=== PATIENT | male | born 1990 | race Two or more races ===

== ENCOUNTER 2020-06-15 14:53 | Outpatient (REF) | payer SELFPAY | END 2020-06-15 14:54 | disposition home or self-care (01) | LOC: HO.LAB 14:53 | PROVIDERS: Visit Provider Internal Medicine | DX: Z20.828 Contact with and (suspected) exposure to other viral communicable diseases (principal) | CPT/HCPCS: C9803; U0003 ==

== ENCOUNTER 2024-06-18 18:39 | Emergency (ER) | payer MEDICAID, SELFPAY ==
[2024-06-18 19:02] VITALS: BP 140/91; PULSE 93; RESP 20; TEMP 37; O2SAT 99; BMI 25.1
--- NOTE | 2024-06-18 19:05 | ED.GENADULT ---
HPI - General Adult General Chief complaint: Eye Problems Stated complaint: ? R Eye Infection Time Seen by Provider: 06/18/24 19:28 Source: patient Mode of arrival: ambulatory Limitations: no limitations History of Present Illness ED Provider: HPI narrative: Patient otherwise healthy noticed redness and slight pain in right eye started about 2 weeks ago with slight blurred vision which got better in between but for last 3 days noticed increase in erythema of the sclera with worsening of blurred vision denies any trauma no scotomas no fever no discharge from the eyes Related Data Allergies Allergy/AdvReac Type Severity Reaction Status Date / Time No Known Allergies Allergy Verified 06/18/24 19:06 Review of Systems Review of Systems: Yes all other systems are reviewed and are negative [facility] Social History Social History Advance Directives: No Advance Directives Information Provided: No Physical Exam ED Vital Signs: Vital Signs - 24 hr 06/18/24 19:02 Temperature 98.6 F Pulse Rate 93 Respiratory Rate 20 Blood Pressure 140/91 H Pulse Oximetry 99 Oxygen Delivery Method Room Air BMI result Body Mass Index 25.1 Appearance: Alert. Oriented X3. No acute distress. EYE: Left eye is normal IOP of 10, right eye irregular fixed pupils no reaction to direct or consensual response unable to visualize fundus visual acuity to hand movements only with blurred vision IOP 21.3 injected sclera no redness at the limbus no cells seen in the anterior chamber ? Posterior uveitis ENT: Pharynx normal. Oral Mucosa moist Neck: Normal inspection. Neck supple. CVS: Normal heart rate and rhythm. Pulses normal. Respiratory: No respiratory distress. Equal air entry bilateral, no wheezing/rales/rhonchi Skin: Skin warm and dry. Normal skin color. Normal skin turgor. Extremities: No lower extremity edema. Neuro: Oriented X 3. Course Course Course Narrative: RME, this is a rapid medical exam performed by Juan Antonio Castro please refer to primary provider for complete H&P- 33-year-old male presents for evaluation of right eye redness. He reports minimal pain and itching but no drainage from the eye. His symptoms started about 2 weeks ago. He reports a remote history of being scratched in the eye but he was never seen for it. The patient's right pupil is dilated and elliptical shape compared to the left. Plan for dedicated eye exam. Intra-ocular pressure on right eye 23.9 with [place] Medical Decision Making Medical Decision Making MDM Narrative: Patient with painless vision loss of the right eye with fixed pupils? ??Posterior uveitis vs glaucoma IOP of 21.3 unable to visualize fundus will send the patient to [facility] spoke to Dr. Page accepted the patient for further management Discharge Plan Discharge Clinical Impression: Vision loss of right eye, Uveitis Patient Disposition: [facility] Transfer Details: [facility] Ed Dr Burgess GUZMAN Print Language: Sami
[2024-06-18 20:47] VITALS: BP 140/91; PULSE 93; RESP 20; TEMP 37; O2SAT 99
== END 2024-06-18 20:48 | disposition short-term general hospital (02) ==
PROVIDERS: Emergency Provider Internal Medicine
DX: H54.61 Unqualified visual loss, right eye, normal vision left eye (principal); H20.9 Unspecified iridocyclitis
CPT/HCPCS: 99285